=== PATIENT | male | born 1985 | race Caucasian/White ===

== ENCOUNTER 2018-05-11 06:37 | Emergency (ER) | payer BC ==
[2018-05-11] MEDS ORDERED: Acetaminophen/HYDROcodone 325-7.5 MG Tab PO ONE (07:22)
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
--- NOTE | 2018-05-11 08:32 | CT ---
Indication: Injury. Technique: Multiple contiguous axial images were obtained through the cervical spine. Sagittal and coronal reformatted images were performed. Please note that all CT scans at this facility use dose modulation, iterative reconstruction, and/or weight-based dosing when appropriate to reduce radiation dose to as low as reasonably achievable. Comparison: None. Findings: The alignment of the cervical spine is within normal limits. No acute fracture or subluxation is identified. Posterior intrapedicular screws and posterior fusion rods are identified at C5-C6-C7-T1. There does appear to be compression of C6, but this is felt to be chronic. The intervertebral disc space heights are well maintained, except for at C6-C7 where there is mild intervertebral disc space narrowing. The visualized portions of the posterior fossa is grossly normal. The lung apices are clear. Impression: Postoperative changes of the lower cervical spine. No acute fracture. Please note that all CT scans at this facility use dose modulation, iterative reconstruction, and/or weight-based dosing when appropriate to reduce radiation dose to as low as reasonably achievable. Dictated by Nayeli Reeder MD @ May 11 2018 8:22AM Signed by Dr. Nayeli Reeder @ May 11 2018 8:31AM
== END 2018-05-11 08:48 | disposition home or self-care (01) ==
LOC: MW.ED 06:37
DX: M54.2 Cervicalgia (principal); F17.210 Nicotine dependence, cigarettes, uncomplicated
CPT/HCPCS: 72125; 96372; 99284; A9270; J2360